=== PATIENT | male | born 1970 | race Caucasian/White ===

== ENCOUNTER 2024-02-12 12:57 | Inpatient (IN) | payer OTHER ==
[2024-02-12 15:09] VITALS: BMI 30.8
[2024-02-12] MEDS ORDERED: guaiFENesin 600 MG TABLET.ER (FP) PO PRN (16:00)
[2024-02-12] MEDS ORDERED: hydrOXYzine PAMOATE 25 MG CAPSULE (FP) PO PRN (16:00)
[2024-02-12] MEDS ORDERED: BENZONATATE 200 MG CAPSULE PO PRN (16:00)
[2024-02-12] MEDS ORDERED: LOPERAMIDE HCL 2 MG CAPSULE PO PRN (16:00)
[2024-02-12] MEDS ORDERED: MAG HYDROX/AL HYDROX/SIMETH 30 ML UNIT-DOSE CUP PO PRN (16:00)
[2024-02-12] MEDS ORDERED: MAGNESIUM HYDROX 2400MG/30ML ORAL SUSPENSION 30 ML CUP PO PRN (16:00)
[2024-02-12] MEDS ORDERED: IBUPROFEN 600 MG TABLET (FP) PO PRN (16:00)
[2024-02-12] MEDS ORDERED: POLYETHYLENE GLYCOL (HEALTHYLAX) 3350 17 GM PACKET PO PRN (16:00)
[2024-02-12] MEDS ORDERED: IBUPROFEN 400 MG TABLET (FP) PO PRN (16:00)
[2024-02-12] MEDS ORDERED: ONDANSETRON *ODT* 4 MG TABLET SL PRN (16:00)
[2024-02-12] MEDS ORDERED: NALOXONE HCL 0.4 MG/ML VIAL IM PRN (16:00)
[2024-02-12] MEDS ORDERED: BISMUTH SUBSALICYLATE 524 MG/30 ML PO PRN (16:00)
[2024-02-12] MEDS ORDERED: LORazepam 1 MG TABLET PO PRN (16:00)
[2024-02-12] MEDS ORDERED: BENZOCAINE/MENTHOL (CHLORASEPTIC ) LOZENGE MM PRN (16:00)
[2024-02-12] MEDS ORDERED: DICYCLOMINE HCL 10 MG CAPSULE PO PRN (16:00)
[2024-02-12] MEDS ORDERED: NALOXONE HCL (KLOXXADO) 8 MG SPRAY NS PRN (16:00)
[2024-02-12] MEDS ORDERED: ALBUTEROL SO4 HFA INHALER IH PRN (16:12)
[2024-02-12] MEDS ORDERED: LORazepam 2 MG TABLET PO SCH (17:00)
[2024-02-12] MEDS: PRENATAL VITAMINS W/ FOLIC ACID TABLET (FP) PO SCH (18:00)
[2024-02-12] MEDS: NICOTINE 21 MG/24 HOURS TOPICAL PATCH TD SCH (18:03)
[2024-02-12] MEDS: carBAMazepine 200 MG TABLET PO ONE (20:22)
[2024-02-12] MEDS: METHOCARBAMOL 500 MG TABLET PO PRN (20:27)
[2024-02-12] MEDS: LORazepam 1 MG TABLET PO PRN (20:27)
[2024-02-12] MEDS: THIAMINE HCL 100 MG TABLET (FP) PO SCH (22:46)
[2024-02-12] MEDS: MELATONIN 5 MG TABLETS PO SCH (22:47)
[2024-02-12] MEDS: LORazepam 2 MG TABLET PO SCH (22:48)
[2024-02-13] MEDS: carBAMazepine 200 MG TABLET PO SCH (10:40)
[2024-02-13 11:38] LABS: HEMATOCRIT 47.2 % (35.4-49); HEMOGLOBIN 15.7 GM/dL (11.7-16.9); MCH 29.9 pg (25.7-33.7); MCHC 33.2 g/dl (32.0-35.9); MEAN PLT VOLUME 8.3 fl (7.5-11.1); PLATELET COUNT 275 10^3/uL (134-434); RBC 5.25 M/mm3 (4.00-5.60); RDW 13.7 % (11.9-15.9); WHITE BLOOD COUNT 8.1 K/mm3 (4.0-10.0)
[2024-02-13 11:47] LABS: CHLORIDE 110 mmol/L (98-107); POTASSIUM 3.9 mmol/L (3.5-5.1); SODIUM 141 mmol/L (136-145)
[2024-02-13 11:52] LABS: BLOOD UREA NITROGEN 19.1 mg/dL (7-18); CALCIUM 8.9 mg/dL (8.5-10.1); GLUCOSE,RANDOM 96 mg/dL (74-106)
[2024-02-13 11:53] LABS: ALBUMIN 3.4 g/dl (3.4-5.0); ANION GAP 6 mmol/L (4-13); CO2 26 mmol/L (21-32)
[2024-02-13 11:55] LABS: CREATININE 0.9 mg/dL (0.55-1.3); SGOT/AST 16 U/L (15-37); SGPT/ALT 22 U/L (13-61)
[2024-02-13 11:57] LABS: BILIRUBIN,TOTAL 0.3 mg/dL (0.2-1); TOT PROT 6.3 g/dl (6.4-8.2)
[2024-02-13 11:58] LABS: ALK PHOS 58 U/L (45-117)
[2024-02-13] MEDS: FLUTICASONE/UMECLIDIN/VILANTER(100-62.5-25 TRELEGY ELLIPTA) INAHLER IH SCH (15:14)
[2024-02-14] MEDS ORDERED: LORazepam 1 MG TABLET PO SCH (05:00)
[2024-02-14] MEDS: LORazepam 1 MG TABLET PO SCH (05:15)
[2024-02-14] MEDS: ACETAMINOPHEN 325 MG TABLET (FP) PO PRN (06:14)
[2024-02-14 17:41] VITALS: BP 114/84; PULSE 90; RESP 18; TEMP 98.6
[2024-02-15] MEDS ORDERED: LORazepam 0.5 MG TABLET PO PRN ×2
[2024-02-15] MEDS ORDERED: LORazepam 0.5 MG TABLET PO SCH ×2 (05:00)
[2024-02-16] MEDS ORDERED: LORazepam 0.5 MG TABLET PO ONE ×2 (05:00)
== END 2024-02-14 16:36 | disposition left against medical advice (07) | DRG 894 ==
LOC: YASAS 12:57 → Y6N 16:42
PROVIDERS: ADMIT Allergy & Immunology; ATTEND Surgery
PROC: HZ2ZZZZ Detoxification Services for Substance Abuse Treatment (ICD-10-PCS; principal; 2024-02-12)
DX: F10.230 Alcohol dependence with withdrawal, uncomplicated (principal); F11.20 Opioid dependence, uncomplicated; F14.20 Cocaine dependence, uncomplicated; F17.210 Nicotine dependence, cigarettes, uncomplicated; G40.909 Epilepsy, unspecified, not intractable, without status epilepticus; J45.909 Unspecified asthma, uncomplicated
CPT/HCPCS: 36415; 80053; 80156; 80305; 80307; 85027; 86780; 93005; 93010